=== PATIENT | female | born 1995 | race Caucasian/White ===

== ENCOUNTER → 2020-08-27 | Outpatient (CLI) | payer OTHER ==
[~2020-08-27] MED LIST: PRENATAL VITAM1 EAC8 PO; TRANDATE 100 M100 MG PO; ZOFRAN4 MG PO
== END ==
LOC: MRI 08-20 15:15
DX: G43.909 Migraine, unspecified, not intractable, without status migrainosus (principal)
CPT/HCPCS: 70553; A9577